=== PATIENT | female | born 1965 | race Caucasian/White ===

== ENCOUNTER 2017-08-14 13:04 | Emergency (ER) | payer MEDICAID, OTHER ==
[2017-08-14 13:11] VITALS: O2SAT 98
--- NOTE | 2017-08-14 14:09 | EDPHY ---
H & P Stated Complaint: SLIPPED IN SHOWER THIS AM/HIT R RIBS Time Seen by Provider: 08/14/17 14:08 HPI/ROS: HPI: This is a 52-year-old female who presents with Chief Complaint: SLIPPED IN SHOWER THIS AM/HIT R RIBS Location: Right lower anterior ribs Quality: Pain Duration: 3-5 hours prior to arrival Signs and Symptoms: No LOC, no shortness of breath, No bleeding, no radiation, no numbness, no weakness, no decreased range of motion, no swelling, + pain Timing: Acute Severity: 03/26 Context: Patient reports that she was in the shower and let the water fill up as she is going to take a bath. She went to step out of the tub to get the Lavender to at to the bath water when she lost her footing as there was soap residue. She quickly turned to the side and her right lower rib hit the side of the bath tub. She felt immediate pain that has remained in worsens with inspiration. She did not hit her head. She denies any neck pain/LOC. She went to a chiropractor prior to arrival who advised that he would suggest x-ray from the emergency room before he performs manipulation. Does not take any blood thinners. Denies history of lung disease. Modifying Factors: None Comment: ROS: see HPI Constitutional: No fever, no chills, no weight loss Eyes: No blurred vision Respiratory: No shortness of breath, no cough Cardiovascular: No chest pain Gastrointestinal: No nausea, no vomiting no diarrhea Genitourinary: No dysuria Extremities: No myalgias Neurologic: No weakness, no numbness Skin: No rashes Hematologic: No bruising, no bleeding MEDICAL/SURGICAL/SOCIAL HISTORY: Medical history: breast cancer Surgical history: Denies Social history: Employed. CONSTITUTIONAL: Pleasant well-appearing adult female, awake and alert, no obvious distress HEENT: Atraumatic and normocephalic, PERRL, EOMI. Tympanic membranes clear. No tympanic membrane rupture. Nares patent. Oropharynx clear, no exudate and moist pink mucosa. Airway patent. No lymphadenopathy. NECK: supple, no midline tenderness, flexion 45 degrees, extension 45 degrees, right and left lateral flexion 45 degrees. No meningismus. Cardiovascular: Normal S1/S2, regular rate, regular rhythm, without murmur rub or gallop. PULMONARY/CHEST: Symmetrical and right anterior lower rib reproducible tenderness with palpation. No ecchymosis. no crepitus. Clear to auscultation bilaterally. Good air movement. No accessory muscle usage. ABDOMEN: Soft, nondistended, nontender, no ecchymosis, no rebound, no guarding , no peritoneal signs, no masses or organomegaly. No CVAT. PELVIC: no pain with rocking; bilateral hips flexion 125 degrees, extension 30 degrees, with no pain internal rotation and no pain external rotation. BACK: No midline tenderness, no paraspinous spasm, deep tendon reflexes 2/2, no pain with straight leg raise EXTREMITIES: 2/2 pulses, no deformities, no clubbing, no cyanosis or edema. NEUROLOGICAL: no focal neuro deficits. GCS 15. SKIN: Warm and dry, no erythema. no rash. Good capillary refill. Source: Patient Exam Limitations: No limitations - Personal History LMP (Females 10-55): Post Menopausal Current Tetanus/Diphtheria Vaccine: Yes - Medical/Surgical History Hx Asthma: No Hx Chronic Respiratory Disease: No Hx Diabetes: No Hx Cardiac Disease: No Hx Renal Disease: No Hx Cirrhosis: No Hx Alcoholism: No Hx HIV/AIDS: No Hx Splenectomy or Spleen Trauma: No Other PMH: BREAST CANCER - Social History Smoking Status: Never smoked Constitutional: Initial Vital Signs Temperature (C) 36.4 C 08/14/17 13:08 Heart Rate 92 08/14/17 13:08 Respiratory Rate 18 08/14/17 13:08 Blood Pressure 102/80 08/14/17 13:08 O2 Sat (%) 98 08/14/17 13:08 O2 Delivery Mode Room Air Allergies/Adverse Reactions: No Known Allergies Allergy (Unverified 08/14/17 13:08) Home Medications: Medication Instructions Recorded CLONAZEPAM 08/14/17 oxyCODONE/APAP 5/325 [Percocet 1 - 2 tab PO Q4H PRN #12 tab 08/14/17 5/325 (*)] Medical Decision Making - Diagnostics Imaging Results: Imaging Impressions Ribs w/Chest X-Ray 08/14/17 14:14 Impression: Nondisplaced fractures involving the peripheral lateral left 8th, 9th, and 10th ribs. There is no evidence of a pneumothorax. ED Course/Re-evaluation: Chest x-ray and right rib series ordered No LOC. Not on any blood thinners. No hypoxia/respiratory distress. X-ray shows nonobstructive than the 8th, 9th, 10th ribs; no pneumothorax Patient show incentive spirometry and gives take-home. Percocet for pain control. 1525: Reassessed patient and pain is minimal at this time. appropriate for outpatient treatment No signs of neurovascular compromise/tenting of skin/compartment syndrome/ extremities and joints examined above and below area of concern and are neurovascularly intact. This patient was seen with secondary supervising physician. Patient's presentation, labs/imaging, treatment and plan of care were reviewed with secondary supervising physician. Differential Diagnosis: Differential diagnosis includes but is not limited to rib contusion, rib fracture, pneumothorax. Departure - Departure Disposition: Home, Routine, Self-Care Clinical Impression: Multiple fractures of ribs, right side, initial encounter for closed fracture Condition: Good Instructions: Rib Fracture (ED) Additional Instructions: Please perform incentive spirometry 10 times every 4 hours while awake for the next 2-3 days. Take Ibuprofen 600 mg every 8 hours with food as needed for pain. You may use Percocet every 4 hours as needed for severe breakthrough pain not relieved by ibuprofen. Apply ice for 30 minutes at a time; 2-3 times per day for the next 1-2 days. Follow up with PCP in 3-4 days for close monitoring and re-evaluation. Referrals: ARYA CEVALLOS [Primary Care Provider] - Prescriptions: oxyCODONE/APAP 5/325 [Percocet 5/325 (*)] 1 - 2 tab PO Q4H PRN #12 tab PRN Reason: Pain, Severe
[2017-08-14 15:55] VITALS: BP 128/80; PULSE 80; RESP 15; TEMP 98.2
== END 2017-08-14 15:53 | disposition home or self-care (01) ==
DX: S22.41XA Multiple fractures of ribs, right side, initial encounter for closed fracture (principal); Z85.3 Personal history of malignant neoplasm of breast; W01.0XXA Fall on same level from slipping, tripping and stumbling without subsequent striking against object, initial encounter; Y92.89 Other specified places as the place of occurrence of the external cause